=== PATIENT | female | born 1970 | race Hispanic/Latino ===

== ENCOUNTER 2016-04-23 18:12 | Emergency (ER) | payer SELFPAY ==
--- NOTE | 2016-04-23 19:26 | Emergency Department Report ---
ED General Adult HPI - General Chief complaint: Hypoglycemia Stated complaint: HYPOGLYCEMIA Time Seen by Provider: 04/23/16 19:14 Source: patient, EMS (ems notes not available at time of chart dictation), old records reviewed Mode of arrival: Stretcher Limitations: No Limitations - History of Present Illness Initial comments: This is a 45-year-old female, previously unknown to me. Has a past medical history of diabetes. She is brought to the hospital by EMS for hypoglycemia. Patient reports taking 5-7 units of insulin with each meal, and 20 units of insulin/Lantus each night prior to bedtime. Patient reports feeling like she is hypoglycemic. Glucose was in the 50s as per EMS. Patient reports taking her insulin multiple times yesterday, but did not eat since yesterday morning. Her sensation of hypoglycemia has since resolved. She has no chest pain, abdominal pain, shortness of breath, nausea, vomiting or diarrhea. She denies all complaints at this time. She reports that she feels improved. Symptoms improved with oral glucose which was given to her in the field by EMS. -: Sudden Improves with: eating Associated Symptoms: denies: confusion, chest pain, cough, diaphoresis, fever/ chills, headaches, loss of appetite, malaise, nausea/vomiting, rash, seizure, shortness of breath, syncope, weakness - Related Data Home Medications Medication Instructions Recorded Confirmed Last Taken Insulin Aspart [Novolog Flexpen] 5 unit SQ AC 04/23/16 04/23/16 Unknown Insulin Glargine [Lantus] 20 units SQ QHS 04/23/16 04/23/16 Unknown Previous Rx's Medication Instructions Recorded Last Taken Type Lisinopril [Zestril TAB] 40 mg PO QDAY #30 tablet 09/27/15 Unknown Rx Allergies Allergy/AdvReac Type Severity Reaction Status Date / Time No Known Allergies Allergy Verified 06/12/13 17:46 ED Review of Systems ROS: Stated complaint: HYPOGLYCEMIA Other details as noted in HPI Constitutional: malaise, weakness, other (now resolved.) Eyes: denies: vision change ENT: denies: epistaxis Respiratory: denies: cough Cardiovascular: denies: chest pain Gastrointestinal: denies: abdominal pain Genitourinary: denies: dysuria Musculoskeletal: denies: back pain Skin: denies: lesions Neurological: as per HPI ED Past Medical Hx - Past Medical History Previous Medical History?: Yes Hx Hypertension: Yes Hx Heart Attack/AMI: No Hx Congestive Heart Failure: No Hx Diabetes: Yes Hx Arthritis: Yes Hx Seizures: No Hx Psychiatric Treatment: Yes (Bipolar, ETOH abuse) Hx Asthma: No Hx COPD: No Hx Dementia: Yes Additional medical history: HERPES, bipolar disorder - Surgical History Past Surgical History?: Yes Additional Surgical History: c section - Social History Smoking Status: Current Some Day Smoker Substance Use Type: Alcohol - Medications Home Medications: Home Medications Medication Instructions Recorded Confirmed Last Taken Type Lisinopril [Zestril TAB] 40 mg PO QDAY #30 tablet 09/27/15 04/23/16 Unknown Rx Insulin Aspart [Novolog Flexpen] 5 unit SQ AC 04/23/16 04/23/16 Unknown History Insulin Glargine [Lantus] 20 units SQ QHS 04/23/16 04/23/16 Unknown History ED Physical Exam - General Limitations: No Limitations General appearance: alert, in no apparent distress - Head Head exam: Present: atraumatic, normocephalic - Eye Eye exam: Present: normal appearance, EOMI. Absent: conjunctival injection, nystagmus - ENT ENT exam: Present: normal exam, normal orophraynx, mucous membranes moist, normal external ear exam - Neck Neck exam: Present: normal inspection, full ROM. Absent: tenderness, meningismus - Respiratory Respiratory exam: Present: normal lung sounds bilaterally. Absent: respiratory distress, wheezes, rales, rhonchi, stridor, decreased breath sounds - Cardiovascular Cardiovascular Exam: Present: regular rate, normal rhythm, normal heart sounds. Absent: bradycardia, tachycardia, irregular rhythm, systolic murmur, diastolic murmur, rubs, gallop - GI/Abdominal GI/Abdominal exam: Present: soft, normal bowel sounds. Absent: distended, tenderness, guarding, rebound, rigid, pulsatile mass - Extremities Exam Extremities exam: Present: normal inspection, full ROM, normal capillary refill. Absent: tenderness, pedal edema, joint swelling, calf tenderness - Back Exam Back exam: Present: normal inspection, full ROM. Absent: tenderness, CVA tenderness (R), CVA tenderness (L), muscle spasm, paraspinal tenderness, vertebral tenderness - Neurological Exam Neurological exam: Present: alert, oriented X3, normal gait, other (Extraocular movements intact. Tongue midline. No facial droop. Facial sensation intact to light touch in the V1, V2, V3 distribution bilaterally. 5 and 5 strength in 4 extremities.. Sensation is intact to light touch in 4 extremities.). Absent : motor sensory deficit - Psychiatric Psychiatric exam: Present: normal affect, normal mood - Skin Skin exam: Present: warm, dry, intact, normal color. Absent: rash ED Course Vital Signs 04/23/16 04/23/16 04/23/16 18:38 18:46 19:02 Temperature 97.6 F Pulse Rate 94 H Respiratory 18 18 Rate Blood Pressure 154/90 O2 Sat by Pulse 100 98 Oximetry 04/23/16 04/23/16 04/23/16 19:03 19:04 19:06 Temperature Pulse Rate 92 H 88 Respiratory 17 15 Rate Blood Pressure 152/64 O2 Sat by Pulse 100 100 Oximetry 04/23/16 04/23/16 04/23/16 19:08 19:10 19:12 Temperature Pulse Rate 87 88 90 Respiratory 15 15 13 Rate Blood Pressure 152/64 152/64 152/64 O2 Sat by Pulse 100 100 99 Oximetry 04/23/16 04/23/16 04/23/16 19:14 19:16 19:17 Temperature Pulse Rate 92 H 97 H 97 H Respiratory 11 L 14 21 Rate Blood Pressure 152/64 152/64 152/64 O2 Sat by Pulse 100 98 100 Oximetry 04/23/16 19:18 Temperature Pulse Rate 99 H Respiratory 19 Rate Blood Pressure 152/64 O2 Sat by Pulse 100 Oximetry - Reevaluation(s) Reevaluation #1: 04/23/16 21:07 Differential diagnosis: Pneumonia, urinary tract infection, hypoglycemia secondary to inadequate oral intake Breanna: 45-year-old female with resolved hypoglycemia, in context of not eating enough but while taking her long-acting insulin and short acting insulin. She is afebrile with reassuring vital signs, chest x-ray does not suggest pneumonia, urinalysis is still pending. Her basic metabolic panel demonstrates slight hyperglycemia, no significant anion gap. I appreciate that the patient' s venous pH is slightly low, but given that her primary complaint is resolved hypoglycemia, and given her other electrolytes, I do not feel she meets criteria for diabetic ketoacidosis. Equivocal quantitative hCG is appreciated, she has no abdominal pain, she can follow up with a primary care doctor for this. The patient is instructed on the importance of eating full meals prior to taking her insulin. She lives at home with her who can watch her and monitor her glucose.. She will be discharged with instructions and reliable family members to care for her. Return precautions are reviewed. ED Medical Decision Making - Lab Data Result diagrams: 04/23/16 19:44 04/23/16 19:44 Vital Signs 04/23/16 04/23/16 04/23/16 18:38 18:46 19:02 Temperature 97.6 F Pulse Rate 94 H Respiratory 18 18 Rate Blood Pressure 154/90 O2 Sat by Pulse 100 98 Oximetry 04/23/16 04/23/16 04/23/16 19:03 19:04 19:06 Temperature Pulse Rate 92 H 88 Respiratory 17 15 Rate Blood Pressure 152/64 O2 Sat by Pulse 100 100 Oximetry 04/23/16 04/23/16 04/23/16 19:08 19:10 19:12 Temperature Pulse Rate 87 88 90 Respiratory 15 15 13 Rate Blood Pressure 152/64 152/64 152/64 O2 Sat by Pulse 100 100 99 Oximetry 04/23/16 04/23/16 04/23/16 19:14 19:16 19:17 Temperature Pulse Rate 92 H 97 H 97 H Respiratory 11 L 14 21 Rate Blood Pressure 152/64 152/64 152/64 O2 Sat by Pulse 100 98 100 Oximetry 04/23/16 19:18 Temperature Pulse Rate 99 H Respiratory 19 Rate Blood Pressure 152/64 O2 Sat by Pulse 100 Oximetry Critical care attestation.: If time is entered above; I have spent that time in minutes in the direct care of this critically ill patient, excluding procedure time. ED Disposition Clinical Impression: Hypoglycemia Disposition: DISCHARGED TO HOME OR SELFCARE Is pt being admited?: No Does the pt Need Aspirin: No Condition: Stable Instructions: Diabetic Hypoglycemia (ED) Additional Instructions: Please make certain to eat a full meal if taking her diabetic medication. Please make certain to follow-up with a primary care doctor within the next week to 2 weeks. Laboratory studies demonstrated that you might be very early in her . Therefore, he should follow up with a primary care doctor for this. Return to the ER right away with fevers or chills, chest pain or shortness of breath, intractable nausea or vomiting, recurrence hypoglycemia/ low blood sugar levels. Referrals: PRIMARY CARE, [Primary Care Provider] - 3-5 Days ARJUN GUNN MD [Staff Physician] - 3-5 Days
[2016-04-23 20:00] LABS: Hemoglobin 13.1 gm/dl (10.1-14.3); Mean Corpuscular HGB Conc 33 % (30-34); Mean Corpuscular Hemoglobin 32 pg (28-32); Mean Corpuscular Volume 97 fl (79-97); Platelet Count 247 K/mm3 (140-440); Red Blood Count 4.12 M/mm3 (3.65-5.03); Red Cell Distribution Width 12.8 % (13.2-15.2); White Blood Count 14.3 K/mm3 (4.5-11.0)
[2016-04-23 20:17] LABS: BUN/Creatinine Ratio 13.33; Calcium 8.5 mg/dL (8.4-10.2); Chloride 97.9 mmol/L (98-107); Potassium 3.8 mmol/L (3.6-5.0)
--- NOTE | 2016-04-23 21:01 | XRay Report ---
FINAL REPORT PROCEDURE: XR CHEST 1V AP TECHNIQUE: Chest radiograph anteroposterior view. CPT 11825 HISTORY: hypoglycemia ? pna COMPARISON: No prior studies are available for comparison. FINDINGS: Heart: Normal. Mediastinum/Vessels: Normal. Lungs/Pleural space: Normal. Bony thorax: No acute osseous abnormality. Life support devices: None. IMPRESSION: No acute cardiopulmonary abnormality.
[2016-04-23 21:20] LABS: Bilirubin,Urine NEG (Negative); Blood,Urine NEG (Negative); Ketones,Urine NEG (Negative); Leukocyte Esterase,Urine SM (Negative); Nitrite,Urine NEG (Negative); Urobilinogen,Urine < 2.0 mg/dL (<2.0)
[2016-04-23 22:13] VITALS: BP 157/94
== END 2016-04-23 22:11 | disposition home or self-care (01) ==
LOC: ED 18:12
DX: E11.649 Type 2 diabetes mellitus with hypoglycemia without coma (principal); I10 Essential (primary) hypertension; F31.9 Bipolar disorder, unspecified; M19.90 Unspecified osteoarthritis, unspecified site; F03.90 Unspecified dementia, unspecified severity, without behavioral disturbance, psychotic disturbance, mood disturbance, and anxiety; Z79.4 Long term (current) use of insulin
CPT/HCPCS: 36415; 71010; 80048; 81001; 81025; 82805; 82962; 84702; 85027

== ENCOUNTER 2017-06-13 16:00 | Inpatient (IN) | payer OTHER ==
[2017-06-13 17:02] LABS: Basophils # (Auto) 0.1 K/mm3 (0.0-0.1); Basophils % (Auto) 1.1 % (0.0-1.8); Eosinophils % (Auto) 0.3 % (0.0-4.3); Hematocrit 33.3 % (30.3-42.9); Hemoglobin 10.9 gm/dl (10.1-14.3); Lymphocytes # (Auto) 1.2 K/mm3 (1.2-5.4); Lymphocytes % (Auto) 15.1 % (13.4-35.0); Mean Corpuscular HGB Conc 33 % (30-34); Mean Corpuscular Hemoglobin 31 pg (28-32); Mean Corpuscular Volume 95 fl (79-97); Monocytes # (Auto) 0.7 K/mm3 (0.0-0.8); Monocytes % (Auto) 8.7 % (0.0-7.3); Platelet Count 378 K/mm3 (140-440); Red Blood Count 3.51 M/mm3 (3.65-5.03); Red Cell Distribution Width 16.2 % (13.2-15.2)
[2017-06-13 17:06] LABS: Calcium 8.7 mg/dL (8.4-10.2)
[2017-06-13] MEDS ORDERED: NACL 0.9% 1000 ML 1,000 ML IV ONE (17:53)
[2017-06-13] MEDS ORDERED: HumuLIN R IV ONE (17:53)
--- NOTE | 2017-06-13 18:06 | Emergency Department Report ---
- General Chief complaint: Hyperglycemia Stated complaint: HIGH BLOOD SUGAR Time Seen by Provider: 06/13/17 17:52 Source: patient, old records reviewed Mode of arrival: Ambulatory Limitations: No Limitations - History of Present Illness Initial comments: 46-year-old female with a past medical history of arthritis, diabetes (insulin) , hypertension, bipolar disorder, and alcohol abuse presents to the hospital complaining of feeling "sick". Patient is unable to be more specific but states she does feel nauseated and is having vomiting. She does not know the last time she vomited. She denies diarrhea, pain, or fever. Patient apparently was in a hospital in [facility] last week and a hospital in [place]. History of DKA and medication noncompliance. Patient is apparently homeless. Patient presents with discharge. Sugars from hospital [facility] with admission for DKA from June 01 until June 12. She was discharged on amlodipine , gabapentin, Pepcid, hydralazine, insulin, labetalol, Flagyl, and miconazole 2 % cream - Related Data Home Medications Medication Instructions Recorded Confirmed Last Taken Insulin Aspart [Novolog Flexpen] 5 unit SQ AC 04/23/16 04/23/16 Unknown Insulin Glargine [Lantus] 20 units SQ QHS 04/23/16 04/23/16 Unknown Previous Rx's Medication Instructions Recorded Last Taken Type Lisinopril [Zestril TAB] 40 mg PO QDAY #30 tablet 09/27/15 Unknown Rx Allergies Allergy/AdvReac Type Severity Reaction Status Date / Time No Known Allergies Allergy Verified 06/12/13 17:46 ED Review of Systems ROS: Stated complaint: HIGH BLOOD SUGAR Other details as noted in HPI Comment: All other systems reviewed and negative Other: Constitutional: No fevers chills Eyes: No eye pain visual changes ENT: No ear pain or throat pain Neck: Denies pain Respiratory: Denies cough wheezing shortness of breath Cardiovascular: Denies chest pain, palpitations, syncope GI: Denies abdominal pain : Denies dysuria Musculoskeletal: Denies back pain Skin: Denies rash, lesions, erythema Neurologic: Denies headache, numbness, weakness Psychiatric: Denies suicidal ideation, hallucinations ED Past Medical Hx - Past Medical History Previous Medical History?: Yes Hx Hypertension: Yes Hx Heart Attack/AMI: No Hx Congestive Heart Failure: No Hx Diabetes: Yes Hx Arthritis: Yes Hx Seizures: No Hx Psychiatric Treatment: Yes (Bipolar, ETOH abuse) Hx Asthma: No Hx COPD: No Hx Dementia: Yes Additional medical history: HERPES, bipolar disorder - Surgical History Past Surgical History?: Yes Additional Surgical History: c section - Social History Smoking Status: Current Every Day Smoker Substance Use Type: Prescribed, Other - Medications Home Medications: Home Medications Medication Instructions Recorded Confirmed Last Taken Type Lisinopril [Zestril TAB] 40 mg PO QDAY #30 tablet 09/27/15 04/23/16 Unknown Rx Insulin Aspart [Novolog Flexpen] 5 unit SQ AC 04/23/16 04/23/16 Unknown History Insulin Glargine [Lantus] 20 units SQ QHS 04/23/16 04/23/16 Unknown History ED Physical Exam - General Limitations: No Limitations - Other Other exam information: General: No limitations, patient is alert in no acute distress Head exam: Atraumatic, normocephalic Eyes exam: Normal appearance ENT: Moist mucous membrane Neck exam: Normal inspection, full range of motion Respiratory exam: Clear to auscultation bilateral, no wheezes, rales, crackles Cardiovascular: Normal rate and rhythm, normal heart sounds Abdomen: Soft, nondistended, and nontender, with normal bowel sounds, no rebound, or guarding Extremity: Full range of motion normal inspection no deformity Back: Normal Inspection, full range of motion, no tenderness Neurologic: Alert but somewhat slow to respond to questions, oriented x3, cranial nerves intact, no motor or sensory deficit Psychiatric: normal affect, normal mood Skin: Warm, dry, intact ED Course Vital Signs 06/13/17 06/13/17 06/13/17 16:03 17:59 18:01 Temperature 97.8 F Pulse Rate 87 81 85 Respiratory 20 13 13 Rate Blood Pressure 130/66 145/70 O2 Sat by Pulse 98 99 Oximetry 06/13/17 18:07 Temperature Pulse Rate Respiratory 14 Rate Blood Pressure O2 Sat by Pulse 97 Oximetry ED Medical Decision Making - Lab Data Result diagrams: 06/13/17 16:16 06/13/17 16:16 Lab Results 06/13/17 06/13/17 06/13/17 Range/Units 16:16 16:16 16:16 WBC 7.9 (4.5-11.0) K/mm3 RBC 3.51 L (3.65-5.03) M/mm3 Hgb 10.9 (10.1-14.3) gm/dl Hct 33.3 (30.3-42.9) % MCV 95 (79-97) fl MCH 31 (28-32) pg MCHC 33 (30-34) % RDW 16.2 H (13.2-15.2) % Plt Count 378 (140-440) K/mm3 Lymph % (Auto) 15.1 (13.4-35.0) % [place] % (Auto) 8.7 H (0.0-7.3) % Eos % (Auto) 0.3 (0.0-4.3) % Baso % (Auto) 1.1 (0.0-1.8) % Lymph # 1.2 (1.2-5.4) K/mm3 [place] # 0.7 (0.0-0.8) K/mm3 Eos # 0.0 (0.0-0.4) K/mm3 Baso # 0.1 (0.0-0.1) K/mm3 Seg Neutrophils % 74.8 H (40.0-70.0) % Seg Neutrophils # 5.9 (1.8-7.7) K/mm3 VBG pH (7.320-7.420) Sodium 135 L (137-145) mmol/L Potassium 4.4 (3.6-5.0) mmol/L Chloride 100.6 (98-107) mmol/L Carbon Dioxide 17 L (22-30) mmol/L Anion Gap 22 mmol/L BUN 39 H (7-17) mg/dL Creatinine 3.0 H (0.7-1.2) mg/dL Estimated GFR 17 ml/min BUN/Creatinine Ratio 13 % Glucose 561 H* (65-100) mg/dL Calcium 8.7 (8.4-10.2) mg/dL HCG, Qual Negative (Negative) 06/13/17 Range/Units 16:16 WBC (4.5-11.0) K/mm3 RBC (3.65-5.03) M/mm3 Hgb (10.1-14.3) gm/dl Hct (30.3-42.9) % MCV (79-97) fl MCH (28-32) pg MCHC (30-34) % RDW (13.2-15.2) % Plt Count (140-440) K/mm3 Lymph % (Auto) (13.4-35.0) % [place] % (Auto) (0.0-7.3) % Eos % (Auto) (0.0-4.3) % Baso % (Auto) (0.0-1.8) % Lymph # (1.2-5.4) K/mm3 [place] # (0.0-0.8) K/mm3 Eos # (0.0-0.4) K/mm3 Baso # (0.0-0.1) K/mm3 Seg Neutrophils % (40.0-70.0) % Seg Neutrophils # (1.8-7.7) K/mm3 VBG pH 7.364 (7.320-7.420) Sodium (137-145) mmol/L Potassium (3.6-5.0) mmol/L Chloride (98-107) mmol/L Carbon Dioxide (22-30) mmol/L Anion Gap mmol/L BUN (7-17) mg/dL Creatinine (0.7-1.2) mg/dL Estimated GFR ml/min BUN/Creatinine Ratio % Glucose (65-100) mg/dL Calcium (8.4-10.2) mg/dL HCG, Qual (Negative) - Medical Decision Making Hyperglycemia: PH normal, slight low bicarbonate at 17 with gap of 22. UA for ketosis is pending Insulin bolus initiated Renal insufficiency Acute history of renal insufficiency in the past 2 L of normal saline ordered Nephrology consult Patient just discharged from another hospital yesterday after a 10 day stay. Patient appears chronically noncompliant with her medication and presenting to multiple hospitals in [place] for treatment - Differential Diagnosis DKA, hypoglycemia, dehydration, renal insufficiency, noncompliance Critical Care Time: No Critical care attestation.: If time is entered above; I have spent that time in minutes in the direct care of this critically ill patient, excluding procedure time. ED Disposition Clinical Impression: Hyperglycemia, Insulin dependent diabetes mellitus, Acute renal insufficiency Disposition: OP ADMIT IP TO THIS HOSP Is pt being admited?: Yes Condition: Stable Time of Disposition: 18:06 (Dr Chatterjee/hosp)
[2017-06-13] MEDS ORDERED: NACL 0.9% 1000 ML 2,000 ML IV ONE (18:07)
--- NOTE | 2017-06-13 18:08 | History and Physical Report ---
History of Present Illness Chief complaint: My blood sugar is high History of present illness: 46 YO Female with DM, OA, HTN, Nicotine Dependence, Bipolar Disorder, ETOH abuse presents to ED for evaluation. Pt states that she has experienced nausea and vomiting over the past 1 day but is unable to recall the last episode of vomiting. Pt seen and evaluated in ED and found to have elevated serum glucose. Pt treated with insulin therapy, with improvement in symptoms. Pt medically optimized, and discharged home. Nursing staff attemptng to make contact with . Past History Past Medical History: diabetes, hypertension Past Surgical History: Social history: smoking, alcohol abuse Family history: no significant family history (reviewed) Medications and Allergies Allergies Allergy/AdvReac Type Severity Reaction Status Date / Time No Known Allergies Allergy Verified 06/12/13 17:46 Home Medications Medication Instructions Recorded Confirmed Last Taken Type Lisinopril [Zestril TAB] 40 mg PO QDAY #30 tablet 09/27/15 04/23/16 Unknown Rx Insulin Aspart [Novolog Flexpen] 5 unit SQ AC 04/23/16 04/23/16 Unknown History Insulin Glargine [Lantus] 20 units SQ QHS 04/23/16 04/23/16 Unknown History Blood Sugar Diagnostic [Test 1 each MC BID #1 box 06/13/17 Unknown Rx Strips] Insulin NPH/Regular [Novolin 70/30] 20 unit SQ BIDDIAB #1 vial 06/13/17 Unknown Rx Syring W-Ndl,Disp,Insul,0.5 ml 1 each MC BID #1 box 06/13/17 Unknown Rx [Ultra Comfort] Active Meds: Active Medications Sodium Chloride (Nacl 0.9% 1000 Ml) 1,000 mls @ 999 mls/hr IV BOLUS ONE Stop: 06/13/17 18:53 Sodium Chloride (Nacl 0.9% 1000 Ml) 1,000 mls @ 999 mls/hr IV BOLUS ONE Stop: 06/13/17 18:53 Sodium Chloride (Nacl 0.9% 1000 Ml) 2,000 mls @ 999 mls/hr IV BOLUS ONE Stop: 06/13/17 20:07 Review of Systems Constitutional: no weight loss, no weight gain, no fever, no chills Ears, nose, mouth and throat: no ear pain, no ear discharge, no tinnitis, no decreased hearing, no nose pain, no nasal congestion Breasts: no change in shape, no swelling, no mass Cardiovascular: no chest pain, no orthopnea, no palpitations, no rapid/ irregular heart beat, no edema Respiratory: no cough, no cough with sputum, no excessive sputum, no hemoptysis Gastrointestinal: nausea, no abdominal pain, no vomiting, no diarrhea, no constipation, no change in bowel habits, no hematemesis, no melena, no hematochezia, no loss of appetite Genitourinary Female: no pelvic pain, no flank pain, no menorrhagia, no dysuria , no urinary frequency, no urgency Rectal: no pain, no incontinence, no bleeding Musculoskeletal: no neck stiffness, no neck pain, no shooting arm pain, no arm numbness/tingling, no low back pain, no shooting leg pain, no leg numbness/ tingling Integumentary: no rash, no pruritis, no redness, no sores, no wounds Neurological: no transient paralysis, no paralysis, no weakness, no parathesias , no numbness, no tingling, no seizures, no syncope Psychiatric: no anxiety, no memory loss, no change in sleep habits, no sleep disturbances, no insomnia, no hypersomnia, no change in appetite, no suicidal ideation, no disorientation, no anxiety attacks, no confusion, no irritability, no mood swings Endocrine: no cold intolerance, no heat intolerance, no polyphagia, no excessive thirst, no polydipsia, no polyuria, no nocturia, no excessive sweating , no flushing, no deepening of the voice, no palpatations, no fatigue Hematologic/Lymphatic: no easy bruising, no easy bleeding, no lymphadenopathy, no lymphedema Allergic/Immunologic: no urticaria, no allergic rhinitis, no wheezing, no anaphylaxis, no angioedema Exam - Constitutional Vitals: Temp Pulse Resp BP Pulse Ox 97.8 F 87 20 130/66 98 06/13/17 16:03 06/13/17 16:03 06/13/17 16:03 06/13/17 16:03 06/13/17 16:03 General appearance: Present: no acute distress, well-nourished - EENT Eyes: Present: PERRL ENT: hearing intact, clear oral mucosa - Neck Neck: Present: supple, normal ROM - Respiratory Respiratory effort: normal Respiratory: bilateral: CTA - Cardiovascular Heart Sounds: Present: S1 & S2. Absent: rub, click - Extremities Extremities: pulses symmetrical, No edema Peripheral Pulses: within normal limits - Abdominal General gastrointestinal: Present: soft, non-tender, non-distended, normal bowel sounds Female genitourinary: Present: normal - Integumentary Integumentary: Present: clear, warm, dry - Musculoskeletal Musculoskeletal: gait normal, strength equal bilaterally - Psychiatric Psychiatric: appropriate mood/affect, intact judgment & insight - Neurologic Neurologic: CNII-XII intact, moves all extremities Results - Labs CBC & Chem 7: 06/13/17 16:16 06/13/17 20:26 Labs: Abnormal lab results 06/13/17 06/13/17 Range/Units 16:16 16:16 RBC 3.51 L (3.65-5.03) M/mm3 RDW 16.2 H (13.2-15.2) % [place] % (Auto) 8.7 H (0.0-7.3) % Seg Neutrophils % 74.8 H (40.0-70.0) % Sodium 135 L (137-145) mmol/L Carbon Dioxide 17 L (22-30) mmol/L BUN 39 H (7-17) mg/dL Creatinine 3.0 H (0.7-1.2) mg/dL Glucose 561 H* (65-100) mg/dL Assessment and Plan - Patient Problems (1) Diabetes Current Visit: Yes Status: Acute Plan to address problem: ADA diet, insulin, serial BMP, IVF resuscitation. Discharge home. Awaiting to return to hospital to pick patient up.
[2017-06-13] MEDS ORDERED: ZOFRAN IV ONE (18:15)
[2017-06-13] MEDS ORDERED: SODIUM BICARBONATE IV ONE (19:00)
[2017-06-13] MEDS ORDERED: HumuLIN R ONE (19:57)
[2017-06-13 20:33] LABS: Bilirubin,Urine NEG (Negative); Blood,Urine SM (Negative); Mucus,Urine FEW /HPF; Urobilinogen,Urine < 2.0 mg/dL (<2.0)
[2017-06-13 20:37] LABS: Amphetamine Screen,Urine PRESUMPTIVE NEGATIVE; Benzodiazepines Screen,Urine PRESUMPTIVE NEGATIVE; Cannabinoid Screen,Urine PRESUMPTIVE NEGATIVE; Cocaine Screen,Urine PRESUMPTIVE NEGATIVE; Methadone Screen,Urine PRESUMPTIVE NEGATIVE; Opiate Screen,Urine PRESUMPTIVE NEGATIVE
[2017-06-13 20:47] LABS: Color,Urine Straw (Yellow)
[2017-06-13 21:01] LABS: Calcium 8.2 mg/dL (8.4-10.2)
[2017-06-14] MEDS ORDERED: NACL 0.9% 1000 ML 1,000 ML IV ONE ×2 (08:00→16:58)
[2017-06-14 08:18] LABS: Calcium 8.5 mg/dL (8.4-10.2)
[2017-06-14] MEDS ORDERED: HumuLIN R ONE (08:28)
[2017-06-14] MEDS: NACL 0.9% 1000 ML 1,000 ML IV ONE ×2 (08:30→19:52)
[2017-06-14] MEDS ORDERED: VASELINE LIP THERAPY TP ONE (12:44)
[2017-06-14] MEDS: HumuLIN R IV SCH ×5 (14:08→22:05)
[2017-06-14] MEDS ORDERED: NACL 0.9% 1000 ML 1,000 ML ONE (16:36)
[2017-06-14] MEDS ORDERED: SODIUM BICARBONATE IV ONE ×2 (19:11→20:00)
[2017-06-15] MEDS: HumuLIN R IV SCH ×7 (00:30→22:18)
[2017-06-15] MEDS ORDERED: NACL 0.9% 1000 ML 1,000 ML ONE (04:50)
[2017-06-15] MEDS ORDERED: NACL 0.9% 1000 ML 1,000 ML IV ONE (04:54)
[2017-06-15 08:06] LABS: Calcium 8.2 mg/dL (8.4-10.2)
[2017-06-15] MEDS ORDERED: NACL 0.9% 1000 ML 3,000 ML IV ONE (08:40)
[2017-06-15] MEDS ORDERED: SODIUM CHLORIDE FLUSH SYRINGE 10 ML IV PRN (08:40)
[2017-06-15] MEDS ORDERED: D50W (25GM) Syringe IV PRN (08:40)
--- NOTE | 2017-06-15 08:52 | Event Note ---
Date: 06/15/17 Patient now in DKA, will be admitted to ICU for management. Case management to meet with family for social issues and discharge planning. Full note to follow DKA vs HONK Hypernatremia DM- uncontrolled RASHI with vasomotor nephropathy Sinus Tachycardia HTN
[2017-06-15] MEDS ORDERED: D5W/0.45% NACL/KCL 20 MEQ 20 MEQ/1,000 ML BAG IV SCH (09:00)
[2017-06-15] MEDS ORDERED: HumuLIN R 100 UNITS in NACL 0.9% 99 ML IV SCH ×2 (09:00→12:00)
[2017-06-15 09:44] LABS: Calcium 8.2 mg/dL (8.4-10.2)
[2017-06-15] MEDS: SODIUM CHLORIDE FLUSH SYRINGE 10 ML IV SCH ×2 (12:36→22:54)
[2017-06-15 12:50] LABS: Calcium 8.2 mg/dL (8.4-10.2)
[2017-06-15 14:30] LABS: Calcium 8.1 mg/dL (8.4-10.2)
[2017-06-15 15:49] LABS: Calcium 8.4 mg/dL (8.4-10.2)
[2017-06-15] MEDS: DUONEB *Not for PRN Use IH SCH ×2 (15:54→20:04)
--- NOTE | 2017-06-15 16:32 | Consultation ---
History of Present Illness Consult date: 06/15/17 Requesting physician: SOLANGE LOWERY History of present illness: 46 YO Female with DM, OA, HTN, Nicotine Dependence, Bipolar Disorder, ETOH abuse presents to ED for evaluation. Pt states that she has experienced nausea and vomiting over the past 1 day but is unable to recall the last episode of vomiting. Pt seen and evaluated in ED and found to have elevated serum glucose. Pt treated with insulin therapy, with improvement in symptoms. Pt medically optimized, and discharged home. Now found to be in DKA. I have been consulted to facilitate ICU admission for DKA management and insulin therapy. Patient was seen and examined in the ER. Vitals, labs, medications, chart reviewed. She states she feels a little better, but still very nauseous. REVIEW OF SYSTEMS Constitutional: no weight loss, no weight gain, no fever, no chills Ears, nose, mouth and throat: no ear pain, no ear discharge, no tinnitis, no decreased hearing, no nose pain, no nasal congestion Breasts: no change in shape, no swelling, no mass Cardiovascular: no chest pain, no orthopnea, no palpitations, no rapid/ irregular heart beat, no edema Respiratory: no cough, no cough with sputum, no excessive sputum, no hemoptysis Gastrointestinal: nausea, no abdominal pain, no vomiting, no diarrhea, no constipation, no change in bowel habits, no hematemesis, no melena, no hematochezia, no loss of appetite Genitourinary Female: no pelvic pain, no flank pain, no menorrhagia, no dysuria , no urinary frequency, no urgency Rectal: no pain, no incontinence, no bleeding Musculoskeletal: no neck stiffness, no neck pain, no shooting arm pain, no arm numbness/tingling, no low back pain, no shooting leg pain, no leg numbness/ tingling Integumentary: no rash, no pruritis, no redness, no sores, no wounds Neurological: no transient paralysis, no paralysis, no weakness, no parathesias , no numbness, no tingling, no seizures, no syncope Psychiatric: no anxiety, no memory loss, no change in sleep habits, no sleep disturbances, no insomnia, no hypersomnia, no change in appetite, no suicidal ideation, no disorientation, no anxiety attacks, no confusion, no irritability, no mood swings Endocrine: no cold intolerance, no heat intolerance, no polyphagia, no excessive thirst, no polydipsia, no polyuria, no nocturia, no excessive sweating , no flushing, no deepening of the voice, no palpatations, no fatigue Hematologic/Lymphatic: no easy bruising, no easy bleeding, no lymphadenopathy, no lymphedema Allergic/Immunologic: no urticaria, no allergic rhinitis, no wheezing, no anaphylaxis, no angioedema Past History Past Medical History: diabetes, hypertension Past Surgical History: Social history: smoking, alcohol abuse Family history: no significant family history (reviewed) Medications and Allergies Allergies Allergy/AdvReac Type Severity Reaction Status Date / Time No Known Allergies Allergy Verified 06/12/13 17:46 Home Medications Medication Instructions Recorded Confirmed Last Taken Type Lisinopril [Zestril TAB] 40 mg PO QDAY #30 tablet 09/27/15 06/15/17 Unknown Rx Insulin Glargine [Lantus] 20 units SQ QHS 04/23/16 06/15/17 Unknown History Blood Sugar Diagnostic [Test 1 each MC BID #1 box 06/13/17 Unknown Rx Strips] Insulin NPH/Regular [Novolin 70/30] 20 unit SQ BIDDIAB #1 vial 06/13/17 Unknown Rx Active Meds: Active Medications Albuterol/Ipratropium (Duoneb *Not For Prn Use*) 1 ampul IH Q6HRT [facility] Last Admin: 06/15/17 15:54 Dose: 1 ampul Dextrose (D50w (25gm) Syringe) 0 ml IV PRN PRN PRN Reason: Hypoglycemia Hydralazine HCl (Apresoline) 10 mg IV Q4HR PRN PRN Reason: Hypertension Potassium Chloride/Dextrose/Sod Cl (D5w/0.45% Nacl/Kcl 20 Meq) 20 meq in 1,000 mls @ 125 mls/hr IV DIRECT NATASHA Insulin Human Regular 100 (units/ Sodium Chloride) 100 mls @ 1 mls/hr IV TITR NATASHA; Protocol Last Titration: 06/15/17 15:31 Dose: 5 units/hr, 5 mls/hr Insulin Human Isoph/Insulin Regular (Humulin 70/30) 15 unit SUB-Q BIDDIAB NATASHA Insulin Human Regular (Humulin R) 0 units IV ACHS [facility]; Protocol Last Admin: 06/15/17 12:36 Dose: Not Given Sodium Chloride (Sodium Chloride Flush Syringe 10 Ml) 10 ml IV BID NATASHA Last Admin: 06/15/17 12:36 Dose: 10 ml Sodium Chloride (Sodium Chloride Flush Syringe 10 Ml) 10 ml IV PRN PRN PRN Reason: LINE FLUSH Physical Examination Vital signs: Vital Signs Temp Pulse Resp BP Pulse Ox 97.8 F 87 20 130/66 98 06/13/17 16:03 06/13/17 16:03 06/13/17 16:03 06/13/17 16:03 06/13/17 16:03 General appearance: Present: no acute distress, chronically ill looking Restless - EENT Eyes: Present: PERRL ENT: hearing intact, clear oral mucosa - Neck Neck: Present: supple, normal ROM - Respiratory Respiratory effort: normal Respiratory: bilateral: CTA - Cardiovascular Heart Sounds: Present: S1 & S2. Absent: rub, click - Extremities Extremities: pulses symmetrical, No edema Peripheral Pulses: within normal limits - Abdominal General gastrointestinal: Present: soft, non-tender, non-distended, normal bowel sounds Female genitourinary: Present: normal - Integumentary Integumentary: Present: clear, warm, dry - Musculoskeletal Musculoskeletal: gait normal, strength equal bilaterally - Psychiatric Psychiatric: appropriate mood/affect, intact judgment & insight - Neurologic Neurologic: CNII-XII intact, moves all extremities Results - Laboratory Findings CBC and BMP: 06/16/17 04:03 06/16/17 04:03 Abnormal lab findings: Abnormal Labs 06/13/17 06/13/17 06/13/17 16:16 16:16 18:48 RBC 3.51 L RDW 16.2 H [place] % (Auto) 8.7 H Seg Neutrophils % 74.8 H Sodium 135 L Potassium Chloride Carbon Dioxide 17 L BUN 39 H Creatinine 3.0 H Glucose 561 H* POC Glucose 430 H Calcium U Epithel Cells (Auto) 06/13/17 06/13/17 06/13/17 19:45 20:26 22:00 RBC RDW [place] % (Auto) Seg Neutrophils % Sodium Potassium Chloride Carbon Dioxide 19 L BUN 38 H Creatinine 2.7 H Glucose 326 H POC Glucose 386 H 272 H Calcium 8.2 L U Epithel Cells (Auto) 06/13/17 06/14/17 06/14/17 Unknown 07:53 08:16 RBC RDW [place] % (Auto) Seg Neutrophils % Sodium 136 L Potassium 5.2 H Chloride 97.5 L Carbon Dioxide 10 L D BUN 38 H Creatinine 2.8 H Glucose 680 H* POC Glucose > 500 H Calcium U Epithel Cells (Auto) 19.0 H 06/14/17 06/14/17 06/14/17 09:13 11:58 11:59 RBC RDW [place] % (Auto) Seg Neutrophils % Sodium Potassium Chloride Carbon Dioxide BUN Creatinine Glucose 558 H* POC Glucose > 500 H 441 H Calcium U Epithel Cells (Auto) 06/14/17 06/14/17 06/14/17 15:26 16:30 17:28 RBC RDW [place] % (Auto) Seg Neutrophils % Sodium Potassium Chloride Carbon Dioxide BUN Creatinine Glucose POC Glucose 417 H 460 H 360 H Calcium U Epithel Cells (Auto) 06/14/17 06/14/17 06/14/17 18:35 18:59 21:17 RBC RDW [place] % (Auto) Seg Neutrophils % Sodium Potassium Chloride Carbon Dioxide BUN Creatinine Glucose POC Glucose 305 H 285 H 217 H Calcium U Epithel Cells (Auto) 06/14/17 06/15/17 06/15/17 23:00 00:30 04:33 RBC RDW [place] % (Auto) Seg Neutrophils % Sodium Potassium Chloride Carbon Dioxide BUN Creatinine Glucose POC Glucose 255 H 315 H 381 H Calcium U Epithel Cells (Auto) 06/15/17 06/15/17 06/15/17 06:01 07:40 07:42 RBC RDW [place] % (Auto) Seg Neutrophils % Sodium 147 H D Potassium Chloride 110.2 H Carbon Dioxide 14 L BUN 32 H Creatinine 2.5 H Glucose 377 H POC Glucose 361 H 318 H Calcium 8.2 L U Epithel Cells (Auto) 06/15/17 06/15/17 06/15/17 09:16 11:58 12:10 RBC RDW [place] % (Auto) Seg Neutrophils % Sodium 148 H Potassium Chloride 112.2 H 109.6 H Carbon Dioxide 16 L 9 L* D BUN 31 H 30 H Creatinine 2.5 H 2.4 H Glucose 297 H 364 H POC Glucose 331 H Calcium 8.2 L 8.2 L U Epithel Cells (Auto) 06/15/17 06/15/17 06/15/17 13:28 13:56 14:35 RBC RDW [place] % (Auto) Seg Neutrophils % Sodium 149 H Potassium Chloride 113.5 H Carbon Dioxide 13 L BUN 30 H Creatinine 2.4 H Glucose 347 H POC Glucose 339 H 279 H Calcium 8.1 L U Epithel Cells (Auto) 06/15/17 06/15/17 15:18 15:48 RBC RDW [place] % (Auto) Seg Neutrophils % Sodium 150 H Potassium Chloride 115.4 H Carbon Dioxide 14 L BUN 29 H Creatinine 2.3 H Glucose 254 H POC Glucose 218 H Calcium U Epithel Cells (Auto) Assessment and Plan DKA Hypernatremia Tobacco abuse disorder RASHI with vasomotor nephropathy Sinus Tachycardia HTN -Admit ICU -Morrison DKA protocol -Anti-emetics Volume resuscitation -VTE prophylaxis -Nicotine withdrawal precautions, smoking cessation counselling -Closely monitor urine output and renal indices
--- NOTE | 2017-06-15 17:02 | Consultation ---
History of Present Illness - Reason for Consult Consult date: 06/15/17 acute renal failure, hypernatremia Requesting physician: SOLANGE READ - History of Present Illness This is a 46yo F with past medical history of DM insulin dependant, OA, HTN, Nicotine Dependence, Bipolar Disorder, ETOH abuse, who initially presented to ER with complaints of nausea, vomiting abdominal pain. pt was found to be in DKA with AG > 30, uncontrolled glucose and was admitted for IV insulin treatment. labs also shows elevate BUN/Cr at 32/2.5mg/dl for which renal consult is requested. Pt without previous history of kidney disease, denies fever, chills, CP, palpitations, dysuria, blurry vision, headaches, denies recent NSAIDs use, no IV contrast exposure reported. Past History Past Medical History: diabetes, hypertension Past Surgical History: Social history: smoking, alcohol abuse Family history: no significant family history (reviewed) Medications and Allergies Allergies Allergy/AdvReac Type Severity Reaction Status Date / Time No Known Allergies Allergy Verified 06/12/13 17:46 Home Medications Medication Instructions Recorded Confirmed Last Taken Type Lisinopril [Zestril TAB] 40 mg PO QDAY #30 tablet 09/27/15 06/15/17 Unknown Rx Insulin Glargine [Lantus] 20 units SQ QHS 04/23/16 06/15/17 Unknown History Blood Sugar Diagnostic [Test 1 each MC BID #1 box 06/13/17 Unknown Rx Strips] Insulin NPH/Regular [Novolin 70/30] 20 unit SQ BIDDIAB #1 vial 06/13/17 Unknown Rx Active Meds: Active Medications Albuterol/Ipratropium (Duoneb *Not For Prn Use*) 1 ampul IH Q6HRT [facility] Last Admin: 06/15/17 15:54 Dose: 1 ampul Dextrose (D50w (25gm) Syringe) 0 ml IV PRN PRN PRN Reason: Hypoglycemia Hydralazine HCl (Apresoline) 10 mg IV Q4HR PRN PRN Reason: Hypertension Potassium Chloride/Dextrose/Sod Cl (D5w/0.45% Nacl/Kcl 20 Meq) 20 meq in 1,000 mls @ 125 mls/hr IV DIRECT NATASHA Insulin Human Regular 100 (units/ Sodium Chloride) 100 mls @ 1 mls/hr IV TITR NATASHA; Protocol Last Titration: 06/15/17 15:31 Dose: 5 units/hr, 5 mls/hr Potassium Chloride 20 meq/ (Dextrose/Sodium Chloride) 1,010 mls @ 125 mls/hr IV DIRECT NATASHA Insulin Human Isoph/Insulin Regular (Humulin 70/30) 15 unit SUB-Q BIDDIAB [facility] Insulin Human Regular (Humulin R) 0 units IV ACHS NATASHA; Protocol Last Admin: 06/15/17 12:36 Dose: Not Given Sodium Chloride (Sodium Chloride Flush Syringe 10 Ml) 10 ml IV BID NATASHA Last Admin: 06/15/17 12:36 Dose: 10 ml Sodium Chloride (Sodium Chloride Flush Syringe 10 Ml) 10 ml IV PRN PRN PRN Reason: LINE FLUSH Review of Systems All systems: negative Constitutional: anorexia, weakness Gastrointestinal: abdominal pain, nausea, vomiting Exam - Vital Signs Vital signs: Vital Signs Temp Pulse Resp BP Pulse Ox 97.8 F 87 20 130/66 98 06/13/17 16:03 06/13/17 16:03 06/13/17 16:03 06/13/17 16:03 06/13/17 16:03 - General Appearance General appearance: appears stated age, chronically ill EENT: ATNC, PERRL, mucous membranes dry Neck: Present: neck supple Respiratory: Clear to Ascultation Heart: regular, S1S2 Gastrointestinal: Present: normoactive bowel sounds Integumentary: no rash, other (no edema ) Neurologic: no focal deficit, alert and oriented x3, strength 5/5, CN 3-12 intact Psychiatric: mood/affect appropriate, cooperative Results - Lab Results 06/13/17 16:16 06/15/17 15:18 Most recent lab results Calcium 8.4 mg/dL (8.4-10.2) 06/15/17 15:18 Phosphorus 3.70 mg/dL (2.5-4.5) 06/15/17 09:16 Magnesium 1.90 mg/dL (1.7-2.3) 06/15/17 09:16 Laboratory Tests 07/15/13 07/15/13 07/15/13 03:51 07:56 07:56 Glucose POC Glucose Calcium 8.1 L 8.1 L Phosphorus Magnesium Troponin I 0.874 H D 06/14/17 06/14/17 06/14/17 07:53 08:16 11:58 Glucose 680 H* 558 H* POC Glucose > 500 H Calcium Phosphorus Magnesium Troponin I 06/14/17 06/14/17 06/15/17 15:26 16:30 00:30 Glucose POC Glucose 417 H 460 H 315 H Calcium Phosphorus Magnesium Troponin I 06/15/17 06/15/17 06/15/17 07:40 09:16 09:16 Glucose POC Glucose Calcium 8.2 L 8.2 L Phosphorus 3.70 Magnesium 1.90 Troponin I Assessment and Plan - Patient Problems (1) Acute renal insufficiency Current Visit: Yes Status: Acute Plan to address problem: most likely due to pre-renal azotemia in the setting of DKA. cont IVF with hypotonic solution D5W 1/4NS given worsening hypernatremia. glucose control with IV insulin until AG closes supportive care, avoid nephrotoxins, IV contrast, NSAIDs will monitor lytes/renal fxn and make further recommendations. d/w Dr Read (2) Hyperglycemia Current Visit: Yes Status: Acute Plan to address problem: glucose control as per primary attending (3) Insulin dependent diabetes mellitus Current Visit: Yes Status: Acute Plan to address problem: on IV insulin for DKA (4) Nausea and vomiting Current Visit: No Status: Acute Plan to address problem: improved with glucose control (5) Hypertension Current Visit: No Status: Chronic Plan to address problem: monitor on current BP meds
--- NOTE | 2017-06-15 17:59 | Progress Note ---
Assessment and Plan Assessment and plan: 46 YO Female with DM, OA, HTN, Nicotine Dependence, Bipolar Disorder, ETOH abuse presents to ED for evaluation. Pt states that she has experienced nausea and vomiting over the past 1 day prior to presenting to the hospital but is unable to recall the last episode of vomiting. Pt seen and evaluated in ED and found to have elevated serum glucose. Pt treated with insulin therapy, with improvement in symptoms. Pt medically optimized, and discharged home. Although while attempting to contact family patient went back into DKA. on arrival stated that the patient was diagnosed with diabetes at the age of 8 and has had a liabile blood gluocse since they met, at one time was better controlled on glargin but later after lose of insurance patients lifestyle and compliance became more of an issue. DKA Type 1 DM uncontrolled Hypernatremia DM- uncontrolled RASHI with vasomotor nephropathy Sinus Tachycardia HTN Plan: * Admit to the ICU, nephrology and client portfolio manager consult * Start on DKA protocol * Use Hypotonic saline, monitor sodium * monitor renal function * Extensive counselling provided on compliance and tobacco use 15 mins * DVT/GI prophy The high probability of a clinically significant, sudden or life threatening deterioration of the [Endocrinology] system(s) required my full and direct attention, intervention and personal management. The aggregate critical care time was [35] minutes. This time is in addition to time spent performing reported procedures but includes the following: [x] Data Review and interpretation [x] Patient assessment and monitoring of vital signs [x] Documentation [x] Medication orders and management History Interval history: Patient seen and examined in no acute distress. very lathergic, per spouse patients compliance has been lacking Hospitalist Physical - Constitutional Vitals: Temp Pulse Resp BP Pulse Ox 98.6 F 98 H 20 144/64 99 06/15/17 07:30 06/15/17 16:15 06/15/17 16:15 06/15/17 07:30 06/15/17 07:30 General appearance: Present: no acute distress, well-nourished, other (lathergic ) - EENT Eyes: Present: PERRL, EOM intact ENT: hearing intact, clear oral mucosa - Neck Neck: Present: supple, normal ROM - Respiratory Respiratory effort: normal Respiratory: bilateral: CTA - Cardiovascular Rhythm: regular Heart Sounds: Present: S1 & S2. Absent: systolic murmur - Extremities Extremities: no ischemia, pulses intact, No edema, Full ROM Peripheral Pulses: within normal limits - Abdominal General gastrointestinal: soft, non-tender, non-distended, normal bowel sounds - Integumentary Integumentary: Present: clear, warm, dry - Psychiatric Psychiatric: appropriate mood/affect, intact judgment & insight, memory intact, cooperative - Neurologic Neurologic: CNII-XII intact, moves all extremities - Allied Health Allied health notes reviewed: nursing Results - Labs CBC & Chem 7: 06/13/17 16:16 06/15/17 17:32 Labs: Laboratory Last Values WBC 7.9 K/mm3 (4.5-11.0) 06/13/17 16:16 RBC 3.51 M/mm3 (3.65-5.03) L 06/13/17 16:16 Hgb 10.9 gm/dl (10.1-14.3) 06/13/17 16:16 Hct 33.3 % (30.3-42.9) 06/13/17 16:16 MCV 95 fl (79-97) 06/13/17 16:16 MCH 31 pg (28-32) 06/13/17 16:16 MCHC 33 % (30-34) 06/13/17 16:16 RDW 16.2 % (13.2-15.2) H 06/13/17 16:16 Plt Count 378 K/mm3 (140-440) 06/13/17 16:16 Lymph % (Auto) 15.1 % (13.4-35.0) 06/13/17 16:16 [place] % (Auto) 8.7 % (0.0-7.3) H 06/13/17 16:16 Eos % (Auto) 0.3 % (0.0-4.3) 06/13/17 16:16 Baso % (Auto) 1.1 % (0.0-1.8) 06/13/17 16:16 Lymph # 1.2 K/mm3 (1.2-5.4) 06/13/17 16:16 [place] # 0.7 K/mm3 (0.0-0.8) 06/13/17 16:16 Eos # 0.0 K/mm3 (0.0-0.4) 06/13/17 16:16 Baso # 0.1 K/mm3 (0.0-0.1) 06/13/17 16:16 Seg Neutrophils % 74.8 % (40.0-70.0) H 06/13/17 16:16 Seg Neutrophils # 5.9 K/mm3 (1.8-7.7) 06/13/17 16:16 VBG pH 7.364 (7.320-7.420) 06/13/17 16:16 Sodium 150 mmol/L (137-145) H 06/15/17 15:18 Potassium 3.7 mmol/L (3.6-5.0) 06/15/17 15:18 Chloride 115.4 mmol/L (98-107) H 06/15/17 15:18 Carbon Dioxide 14 mmol/L (22-30) L 06/15/17 15:18 Anion Gap 24 mmol/L 06/15/17 15:18 BUN 29 mg/dL (7-17) H 06/15/17 15:18 Creatinine 2.3 mg/dL (0.7-1.2) H 06/15/17 15:18 Estimated GFR 23 ml/min 06/15/17 15:18 BUN/Creatinine Ratio 13 % 06/15/17 15:18 Glucose 254 mg/dL (65-100) H 06/15/17 15:18 POC Glucose 127 (70-105) H 06/15/17 17:52 Calcium 8.4 mg/dL (8.4-10.2) 06/15/17 15:18 Phosphorus 3.70 mg/dL (2.5-4.5) 06/15/17 09:16 Magnesium 1.90 mg/dL (1.7-2.3) 06/15/17 09:16 HCG, Qual Negative (Negative) 06/13/17 16:16 Urine Color Straw (Yellow) 06/13/17 Unknown Urine Turbidity Slightly cloudy (Clear) 06/13/17 Unknown Urine pH 5.0 (5.0-7.0) 06/13/17 Unknown Ur Specific [place] 1.009 (1.003-1.030) 06/13/17 Unknown Urine Protein 100 mg/dl mg/dL (Negative) 06/13/17 Unknown Urine Glucose (UA) >=500 mg/dL (Negative) 06/13/17 Unknown Urine Ketones Tr mg/dL (Negative) 06/13/17 Unknown Urine Blood Sm (Negative) 06/13/17 Unknown Urine Nitrite Neg (Negative) 06/13/17 Unknown Urine Bilirubin Neg (Negative) 06/13/17 Unknown Urine Urobilinogen < 2.0 mg/dL (<2.0) 06/13/17 Unknown Ur Leukocyte Esterase Neg (Negative) 06/13/17 Unknown Urine WBC (Auto) 1.0 /HPF (0.0-6.0) 06/13/17 Unknown Urine RBC (Auto) 1.0 /HPF (0.0-6.0) 06/13/17 Unknown U Epithel Cells (Auto) 19.0 /HPF (0-13.0) H 06/13/17 Unknown Urine Mucus Few /HPF 06/13/17 Unknown Urine Opiates Screen Presumptive negative 06/13/17 Unknown Urine Methadone Screen Presumptive negative 06/13/17 Unknown Ur Barbiturates Screen Presumptive negative 06/13/17 Unknown Ur Phencyclidine Scrn Presumptive negative 06/13/17 Unknown Ur Amphetamines Screen Presumptive negative 06/13/17 Unknown U Benzodiazepines Scrn Presumptive negative 06/13/17 Unknown Urine Cocaine Screen Presumptive negative 06/13/17 Unknown U Marijuana (THC) Screen Presumptive negative 06/13/17 Unknown Drugs of Abuse Note Disclamer 06/13/17 Unknown
[2017-06-15 18:04] LABS: Calcium 8.3 mg/dL (8.4-10.2)
[2017-06-15] MEDS: KCL 20 MEQ in D5NS 0.2% 1,000 ML IV SCH (19:11)
[2017-06-16 01:14] LABS: Calcium 8.1 mg/dL (8.4-10.2)
[2017-06-16] MEDS ORDERED: HALDOL IV PRN (02:43)
[2017-06-16] MEDS: DUONEB *Not for PRN Use IH SCH ×3 (02:53→21:36)
[2017-06-16 04:17] LABS: Basophils # (Auto) 0.2 K/mm3 (0.0-0.1); Basophils % (Auto) 1.3 % (0.0-1.8); Eosinophils # (Auto) 0.1 K/mm3 (0.0-0.4); Eosinophils % (Auto) 0.9 % (0.0-4.3); Hematocrit 31.1 % (30.3-42.9); Hemoglobin 9.9 gm/dl (10.1-14.3); Lymphocytes # (Auto) 1.7 K/mm3 (1.2-5.4); Lymphocytes % (Auto) 12.7 % (13.4-35.0); Mean Corpuscular HGB Conc 32 % (30-34); Mean Corpuscular Hemoglobin 30 pg (28-32); Mean Corpuscular Volume 95 fl (79-97); Monocytes # (Auto) 0.6 K/mm3 (0.0-0.8); Monocytes % (Auto) 4.4 % (0.0-7.3); Platelet Count 358 K/mm3 (140-440); Red Blood Count 3.28 M/mm3 (3.65-5.03); Red Cell Distribution Width 17.1 % (13.2-15.2)
[2017-06-16 04:34] LABS: Calcium 8.4 mg/dL (8.4-10.2)
[2017-06-16 09:55] LABS: Calcium 8.4 mg/dL (8.4-10.2)
[2017-06-16] MEDS: HumuLIN R IV SCH ×3 (09:56→19:29)
[2017-06-16] MEDS ORDERED: SODIUM BICARBONATE IV ONE ×2 (11:11→11:19)
[2017-06-16] MEDS: SODIUM CHLORIDE FLUSH SYRINGE 10 ML IV SCH ×2 (11:40→23:29)
[2017-06-16] MEDS: KCL 20 MEQ in D5NS 0.2% 1,000 ML IV SCH ×2 (11:40→23:17)
--- NOTE | 2017-06-16 13:58 | Progress Note ---
Assessment and Plan - Patient Problems (1) Acute renal insufficiency Current Visit: Yes Status: Acute Plan to address problem: most likely due to pre-renal azotemia in the setting of DKA. cont IVF with hypotonic solution D5W 1/4 NS given hypernatremia. glucose control improved s/p IV insuliun, AG closed supportive care, avoid nephrotoxins, IV contrast, NSAIDs will monitor lytes/renal fxn and make further recommendations (2) Hyperglycemia Current Visit: Yes Status: Acute Plan to address problem: glucose control as per primary attending (3) Insulin dependent diabetes mellitus Current Visit: Yes Status: Acute Plan to address problem: s/p DKA, AG closed on IV insulin (4) Nausea and vomiting Current Visit: No Status: Acute Plan to address problem: improved with glucose control (5) Hypertension Current Visit: No Status: Chronic Plan to address problem: monitor on current BP meds Subjective Date of service: 06/16/17 Principal diagnosis: RASHI, DKA Interval history: pt awake, alert, in NAD, denies nausea, vomiting fever, chills, SOB, CP Objective - Vital Signs Vital signs: Vital Signs - 12hr 06/16/17 06/16/17 06/16/17 02:00 02:30 03:00 Temperature Pulse Rate Respiratory Rate Blood Pressure 165/78 147/69 142/68 06/16/17 06/16/17 06/16/17 03:15 03:30 03:45 Temperature Pulse Rate 92 H 92 H 88 Respiratory 13 12 12 Rate Blood Pressure 142/68 166/85 147/69 06/16/17 06/16/17 06/16/17 04:01 04:15 04:31 Temperature Pulse Rate 94 H 92 H 91 H Respiratory 11 L 11 L 12 Rate Blood Pressure 167/72 167/72 149/59 06/16/17 06/16/17 06/16/17 04:45 05:00 05:15 Temperature Pulse Rate 87 87 94 H Respiratory 12 13 13 Rate Blood Pressure 149/59 149/61 149/61 06/16/17 06/16/17 06/16/17 05:31 05:45 06:00 Temperature Pulse Rate 93 H 95 H 94 H Respiratory 14 12 12 Rate Blood Pressure 169/79 169/79 175/86 06/16/17 06/16/17 06:04 06:15 Temperature 98 F Pulse Rate 84 97 H Respiratory 14 Rate Blood Pressure 175/86 - General Appearance General appearance: well-developed, appears stated age EENT: ATNC, PERRL, mucous membranes dry Neck: no JVD Respiratory: Present: Clear to Ascultation Cardiology: regular, S1S2 Gastrointestinal: normoactive bowel sounds Integumentary: no rash, other (no edema ) Neurologic: no focal deficit, alert and oriented x3, strength 5/5, CN 3-12 intact Psychiatric: mood/affect appropriate, cooperative - Lab 06/16/17 04:03 06/16/17 09:13 Most recent lab results Calcium 8.4 mg/dL (8.4-10.2) 06/16/17 09:13 Phosphorus 3.70 mg/dL (2.5-4.5) 06/15/17 09:16 Magnesium 1.90 mg/dL (1.7-2.3) 06/15/17 09:16
--- NOTE | 2017-06-16 18:27 | Progress Note ---
Assessment and Plan Assessment and plan: 46 YO Female with DM, OA, HTN, Nicotine Dependence, Bipolar Disorder, ETOH abuse presents to ED for evaluation. Pt states that she has experienced nausea and vomiting over the past 1 day prior to presenting to the hospital but is unable to recall the last episode of vomiting. Pt seen and evaluated in ED and found to have elevated serum glucose. Pt treated with insulin therapy, with improvement in symptoms. Pt medically optimized, and discharged home. Although while attempting to contact family patient went back into DKA. on arrival stated that the patient was diagnosed with diabetes at the age of 8 and has had a liabile blood gluocse since they met, at one time was better controlled on glargin but later after lose of insurance patients lifestyle and compliance became more of an issue. DKA Type 1 DM uncontrolled Hypernatremia DM- uncontrolled RASHI with vasomotor nephropathy Sinus Tachycardia HTN Plan: * Supportive care * Nephrology and dryland farmer consult * Continue on DKA protocol * Use Hypotonic saline, monitor sodium * monitor renal function * Extensive counselling provided on compliance and tobacco use 15 mins * DVT/GI prophy * downgrade once gap is closed. The high probability of a clinically significant, sudden or life threatening deterioration of the [Endocrinology] system(s) required my full and direct attention, intervention and personal management. The aggregate critical care time was [35] minutes. This time is in addition to time spent performing reported procedures but includes the following: [x] Data Review and interpretation [x] Patient assessment and monitoring of vital signs [x] Documentation [x] Medication orders and management History Interval history: Patient seen and examined in no acute distress. very lathergic, per spouse patients compliance has been lacking Hospitalist Physical - Physical exam Narrative exam: General appearance: Present: no acute distress, well-nourished, other (lathergic ) - EENT Eyes: Present: PERRL, EOM intact ENT: hearing intact, clear oral mucosa - Neck Neck: Present: supple, normal ROM - Respiratory Respiratory effort: normal Respiratory: bilateral: CTA - Cardiovascular Rhythm: regular Heart Sounds: Present: S1 & S2. Absent: systolic murmur - Extremities Extremities: no ischemia, pulses intact, No edema, Full ROM Peripheral Pulses: within normal limits - Abdominal General gastrointestinal: soft, non-tender, non-distended, normal bowel sounds - Integumentary Integumentary: Present: clear, warm, dry - Psychiatric Psychiatric: appropriate mood/affect, intact judgment & insight, memory intact, cooperative - Neurologic Neurologic: CNII-XII intact, moves all extremities - Allied Health Allied health notes reviewed: nursing - Constitutional Vitals: Temp Pulse Resp BP Pulse Ox 98 F 97 H 14 175/86 94 06/16/17 06:04 06/16/17 06:15 06/16/17 06:15 06/16/17 06:15 06/16/17 01:46 General appearance: Present: no acute distress, well-nourished, other (lathergic ) Results - Labs CBC & Chem 7: 06/16/17 04:03 06/16/17 09:13 Labs: Laboratory Last Values WBC 13.0 K/mm3 (4.5-11.0) H 06/16/17 04:03 RBC 3.28 M/mm3 (3.65-5.03) L 06/16/17 04:03 Hgb 9.9 gm/dl (10.1-14.3) L 06/16/17 04:03 Hct 31.1 % (30.3-42.9) 06/16/17 04:03 MCV 95 fl (79-97) 06/16/17 04:03 MCH 30 pg (28-32) 06/16/17 04:03 MCHC 32 % (30-34) 06/16/17 04:03 RDW 17.1 % (13.2-15.2) H 06/16/17 04:03 Plt Count 358 K/mm3 (140-440) 06/16/17 04:03 Lymph % (Auto) 12.7 % (13.4-35.0) L 06/16/17 04:03 [place] % (Auto) 4.4 % (0.0-7.3) 06/16/17 04:03 Eos % (Auto) 0.9 % (0.0-4.3) 06/16/17 04:03 Baso % (Auto) 1.3 % (0.0-1.8) 06/16/17 04:03 Lymph # 1.7 K/mm3 (1.2-5.4) 06/16/17 04:03 [place] # 0.6 K/mm3 (0.0-0.8) 06/16/17 04:03 Eos # 0.1 K/mm3 (0.0-0.4) 06/16/17 04:03 Baso # 0.2 K/mm3 (0.0-0.1) H 06/16/17 04:03 Seg Neutrophils % 80.7 % (40.0-70.0) H 06/16/17 04:03 Seg Neutrophils # 10.5 K/mm3 (1.8-7.7) H 06/16/17 04:03 VBG pH 7.364 (7.320-7.420) 06/13/17 16:16 Sodium 153 mmol/L (137-145) H 06/16/17 09:13 Potassium 3.7 mmol/L (3.6-5.0) 06/16/17 09:13 Chloride 117.6 mmol/L (98-107) H 06/16/17 09:13 Carbon Dioxide 20 mmol/L (22-30) L 06/16/17 09:13 Anion Gap 19 mmol/L 06/16/17 09:13 BUN 24 mg/dL (7-17) H 06/16/17 09:13 Creatinine 2.2 mg/dL (0.7-1.2) H 06/16/17 09:13 Estimated GFR 24 ml/min 06/16/17 09:13 BUN/Creatinine Ratio 11 % 06/16/17 09:13 Glucose 99 mg/dL (65-100) 06/16/17 09:13 POC Glucose 158 (70-105) H 06/16/17 17:23 Calcium 8.4 mg/dL (8.4-10.2) 06/16/17 09:13 Phosphorus 3.70 mg/dL (2.5-4.5) 06/15/17 09:16 Magnesium 1.90 mg/dL (1.7-2.3) 06/15/17 09:16 HCG, Qual Negative (Negative) 06/13/17 16:16 Urine Color Straw (Yellow) 06/13/17 Unknown Urine Turbidity Slightly cloudy (Clear) 06/13/17 Unknown Urine pH 5.0 (5.0-7.0) 06/13/17 Unknown Ur Specific [place] 1.009 (1.003-1.030) 06/13/17 Unknown Urine Protein 100 mg/dl mg/dL (Negative) 06/13/17 Unknown Urine Glucose (UA) >=500 mg/dL (Negative) 06/13/17 Unknown Urine Ketones Tr mg/dL (Negative) 06/13/17 Unknown Urine Blood Sm (Negative) 06/13/17 Unknown Urine Nitrite Neg (Negative) 06/13/17 Unknown Urine Bilirubin Neg (Negative) 06/13/17 Unknown Urine Urobilinogen < 2.0 mg/dL (<2.0) 06/13/17 Unknown Ur Leukocyte Esterase Neg (Negative) 06/13/17 Unknown Urine WBC (Auto) 1.0 /HPF (0.0-6.0) 06/13/17 Unknown Urine RBC (Auto) 1.0 /HPF (0.0-6.0) 06/13/17 Unknown U Epithel Cells (Auto) 19.0 /HPF (0-13.0) H 06/13/17 Unknown Urine Mucus Few /HPF 06/13/17 Unknown Urine Opiates Screen Presumptive negative 06/13/17 Unknown Urine Methadone Screen Presumptive negative 06/13/17 Unknown Ur Barbiturates Screen Presumptive negative 06/13/17 Unknown Ur Phencyclidine Scrn Presumptive negative 06/13/17 Unknown Ur Amphetamines Screen Presumptive negative 06/13/17 Unknown U Benzodiazepines Scrn Presumptive negative 06/13/17 Unknown Urine Cocaine Screen Presumptive negative 06/13/17 Unknown U Marijuana (THC) Screen Presumptive negative 06/13/17 Unknown Drugs of Abuse Note Disclamer 06/13/17 Unknown
[2017-06-16 18:33] LABS: Calcium 7.8 mg/dL (8.4-10.2)
[2017-06-16] MEDS: APRESOLINE IV PRN (21:08)
[2017-06-16] MEDS ORDERED: D50W (25GM) Syringe IV PRN ×2 (21:43→21:47)
[2017-06-16] MEDS ORDERED: HumuLIN R IV SCH (21:46)
--- NOTE | 2017-06-16 22:49 | XRay Report ---
FINAL REPORT EXAM: XR CHEST 1V AP HISTORY: sob TECHNIQUE: Chest, portable upright PRIORS: 04/23/2016 FINDINGS: There are bilateral lower lobe infiltrates. There are likely small pleural effusions. Vasculature is mildly congested. There is no cardiomegaly. IMPRESSION: Mild congestion with bilateral lower lobe infiltrates and small pleural effusions.
[2017-06-16] MEDS ORDERED: LASIX ONE (22:55)
[2017-06-16] MEDS ORDERED: LASIX IV ONE (22:59)
[2017-06-16] MEDS: HumuLIN R SUB-Q SCH (23:34)
[2017-06-16] MEDS ORDERED: ATIVAN IV PRN (23:55)
[2017-06-17] MEDS: DUONEB *Not for PRN Use IH SCH ×4 (00:59→13:24)
[2017-06-17] MEDS: HumuLIN R SUB-Q SCH ×4 (04:23→14:10)
[2017-06-17 08:46] VITALS: BP 181/99
[2017-06-17] MEDS: APRESOLINE IV PRN (10:08)
[2017-06-17] MEDS: KCL 20 MEQ in D5NS 0.2% 1,000 ML IV SCH (11:08)
[2017-06-17] MEDS: SODIUM CHLORIDE FLUSH SYRINGE 10 ML IV SCH (11:09)
--- NOTE | 2017-06-17 12:16 | Discharge Summary ---
Providers - Providers Date of Admission: 06/15/17 08:57 Attending physician: SOLANGE LOWERY MD 06/14/17 06:52 Consult to Case Management [CONS] Stat Services Needed at Discharge: Other Notified:: . Additional Physician Instructions: unable to reach caregiver 06/15/17 08:40 Consult to Physician [CONS] Urgent Comment: Consulting Provider: EMMY CANO Physician Instructions: Reason For Exam: arf 06/15/17 08:41 Consult to Dietitian/Nutrition [CONS] Routine Physician Instructions: Reason For Exam: DKA Reason for Consult: Nutrition Recommendations Reason for Consult: Diet education 06/15/17 08:47 Consult to Physician [CONS] Routine Comment: Consulting Provider: PADMINI YUNG Physician Instructions: Reason For Exam: dka Primary care physician: ELAYNE THAKKAR Hospitalization Reason for admission: DKa Condition: Stable Hospital course: 46 YO Female with DM, OA, HTN, Nicotine Dependence, Bipolar Disorder, ETOH abuse presents to ED for evaluation. Pt states that she has experienced nausea and vomiting over the past 1 day prior to presenting to the hospital but is unable to recall the last episode of vomiting. Pt seen and evaluated in ED and found to have elevated serum glucose. Pt treated with insulin therapy, with improvement in symptoms. Pt medically optimized, and discharged home. Although while attempting to contact family patient went back into DKA. on arrival stated that the patient was diagnosed with diabetes at the age of 8 and has had a labile blood glucose since they met, at one time was better controlled on glargin but later after lose of insurance patients lifestyle and compliance became more of an issue. Patient's treatment improved nephrology was consulted renal function also improved with hydration. Status of consultation was had with the patient and about medication compliance patient verbalized understanding. 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 Risk of noncompliance discussed in detail the patient and verbalized understanding. DKA Type 1 DM uncontrolled Hypernatremia DM- uncontrolled Viral gastroenteritis RASHI with vasomotor nephropathy Sinus Tachycardia HTN Disposition: TO HOME OR SELFCARE Time spent for discharge: 35 mins Core Measure Documentation - Palliative Care Palliative Care/ Comfort Measures: Not Applicable - Core Measures Any of the following diagnoses?: none - VTE Discharge Requirements Deep Vein Thrombosis/Pulmonary Embolism Present on Admission: No Exam - Physical Exam Narrative exam: General appearance: Present: no acute distress, well-nourished, other (lathergic ) - EENT Eyes: Present: PERRL, EOM intact ENT: hearing intact, clear oral mucosa - Neck Neck: Present: supple, normal ROM - Respiratory Respiratory effort: normal Respiratory: bilateral: CTA - Cardiovascular Rhythm: regular Heart Sounds: Present: S1 & S2. Absent: systolic murmur - Extremities Extremities: no ischemia, pulses intact, No edema, Full ROM Peripheral Pulses: within normal limits - Abdominal General gastrointestinal: soft, non-tender, non-distended, normal bowel sounds - Integumentary Integumentary: Present: clear, warm, dry - Psychiatric Psychiatric: appropriate mood/affect, intact judgment & insight, memory intact, cooperative - Neurologic Neurologic: CNII-XII intact, moves all extremities - Allied Health Allied health notes reviewed: nursing - Constitutional Vitals: Temp Pulse Resp BP Pulse Ox 97.4 F L 98 H 20 181/99 98 06/17/17 07:50 06/17/17 10:08 06/17/17 07:50 06/17/17 10:08 06/17/17 07:50 Plan Activity: advance as tolerated, fall precautions Diet: diabetic Special Instructions: record daily weights, record daily BP diary, record blood sugar diary Follow up with: ELAYNE THAKKAR MD [Primary Care Provider] - 3-5 Days Prescriptions: Blood Sugar Diagnostic [Test Strips] 1 each MC BID #1 box Insulin NPH/Regular [NovoLIN 70/30] 15 unit SUB-Q BIDDIAB #30 units
--- NOTE | 2017-06-17 14:37 | Progress Note ---
Assessment and Plan - Patient Problems (1) Acute kidney injury Current Visit: Yes Status: Acute Plan to address problem: Prerenal azotemia secondary to volume depletion secondary to diabetic ketoacidosis. Kidney function improved. Patient to follow-up Dr. Givens in 3-4 weeks and get labs a week before that (2) Insulin dependent diabetes mellitus Current Visit: Yes Status: Acute Plan to address problem: Blood sugar control by primary attending (3) Hyponatremia Current Visit: No Status: Acute Plan to address problem: Secondary to volume depletion and factitious secondary to hyperglycemia. Improved (4) Nausea and vomiting Current Visit: No Status: Acute Plan to address problem: Resolved (5) Hypertension Current Visit: No Status: Chronic Plan to address problem: Follow-up blood pressure on current medications Subjective Date of service: 06/17/17 Principal diagnosis: RASHI, DKA Interval history: Patient seen sitting up in bed. Finishing breathing treatment. She has no complaints. Objective - Exam Narrative Exam: Young female sitting up in bed in no acute distress HEENT: NCAT, pink oral mucous membrane Neck: Supple, no venous distention CVS: S1S2 RRR with no murmur, rub or gallop Chest: Clear to auscultation Abdomen: Protuberant, soft, nontender, no organomegaly, bowel sounds are present Extremities: No edema Neuro: Awake, alert no focal deficits - Vital Signs Vital signs: Vital Signs - 12hr 06/17/17 06/17/17 06/17/17 04:52 07:22 07:32 Temperature 98.5 F Pulse Rate 94 H Pulse Rate [ 94 H 98 H Posterior Bilateral Throughout] Respiratory 18 Rate Respiratory 20 20 Rate [Posterior Bilateral Throughout] Blood Pressure 155/76 O2 Sat by Pulse 95 98 Oximetry 06/17/17 06/17/17 07:50 10:08 Temperature 97.4 F L Pulse Rate 98 H 98 H Pulse Rate [ Posterior Bilateral Throughout] Respiratory 20 Rate Respiratory Rate [Posterior Bilateral Throughout] Blood Pressure 181/99 181/99 O2 Sat by Pulse 98 Oximetry - Lab 06/16/17 04:03 06/16/17 18:04 Most recent lab results Calcium 7.8 mg/dL (8.4-10.2) L 06/16/17 18:04 Phosphorus 3.70 mg/dL (2.5-4.5) 06/15/17 09:16 Magnesium 1.90 mg/dL (1.7-2.3) 06/15/17 09:16
== END 2017-06-17 15:20 | disposition home or self-care (01) | DRG 637 ==
LOC: ED 16:00 → CC1 06-15 08:57 → 4A 06-17 00:13
PROVIDERS: ADMIT Internal Medicine; ATTEND Internal Medicine
DX: E10.10 Type 1 diabetes mellitus with ketoacidosis without coma (principal); N17.0 Acute kidney failure with tubular necrosis; E87.0 Hyperosmolality and hypernatremia; A08.4 Viral intestinal infection, unspecified; R00.0 Tachycardia, unspecified; I10 Essential (primary) hypertension; M19.90 Unspecified osteoarthritis, unspecified site; F31.9 Bipolar disorder, unspecified; F10.10 Alcohol abuse, uncomplicated; F17.200 Nicotine dependence, unspecified, uncomplicated
CPT/HCPCS: 36415; 71045; 80048; 80307; 81001; 82805; 82947; 82962; 83735; 84100; 84703; 85025; 94640; 94760; 96361; 96374; 96375; J0360; J1630; J1815; J1940; J2060; J3480; J7030